=== PATIENT | female | born 1980 | race Hispanic/Latino ===

== ENCOUNTER 2022-07-21 18:48 | Emergency (ER) | payer OTHER ==
[~2022-07-21] VITALS: Ht 154.9 cm; Wt 83.9 kg
[2022-07-21 19:38] LABS: BASOPHILS # (AUTO) 0.1 (0.0-0.1); BASOPHILS % 0.6 % (0.0-1.0); EOSINOPHILS # (AUTO) 0.2 (0.0-0.4); EOSINOPHILS % 1.8 % (0.0-6.0); HEMATOCRIT 28.5 % (34.2-44.1); HEMOGLOBIN 7.1 g/dL (12.0-16.0); LYMPHOCYTES # (AUTO) 2.8 (1.0-3.2); LYMPHOCYTES % 27.3 % (18.0-39.1); MEAN CORPUSCULAR HEMOGLOBIN 15.4 pg (28-32); MEAN CORPUSCULAR HGB CONC 24.9 g/dL (31-35); MONOCYTES # (AUTO) 0.4 (0.2-0.8); MONOCYTES % 4.3 % (4.4-11.3); NEUTROPHILS # (AUTO) 6.7 (2.1-6.9); NEUTROPHILS % 65.6 % (38.7-80.0); PLATELET COUNT 622 x10e3/uL (140-360); RED CELL DISTRIBUTION WIDTH 19.9 % (11.7-14.4)
[2022-07-21 20:00] LABS: ALBUMIN 3.8 g/dL (3.5-5.0); ANION GAP 15.4 mmol/L (8-16); CALCIUM 8.8 mg/dL (8.4-10.2); CREATININE, SERUM 0.74 mg/dL (0.57-1.11); POTASSIUM 3.4 mmol/L (3.5-5.1)
[2022-07-21] MEDS ORDERED: SODIUM CHLORIDE 0.9% 250ML 250 ML IV ONE (20:15)
[2022-07-21] MEDS ORDERED: SODIUM CHLORIDE 0.9% 1000ML 1,000 ML ONE (21:30)
[2022-07-21] MEDS ORDERED: SODIUM CHLORIDE 0.9% 1000ML 1,000 ML IV STA (21:31)
[2022-07-22] MEDS ORDERED: SODIUM CHLORIDE 0.9% 250ML 250 ML ONE (00:18)
[2022-07-22 05:23] VITALS: BP 110/60
== END 2022-07-22 05:22 | disposition home or self-care (01) ==
LOC: ER 18:51
DX: R53.1 Weakness (principal); D50.9 Iron deficiency anemia, unspecified; N92.0 Excessive and frequent menstruation with regular cycle; F17.210 Nicotine dependence, cigarettes, uncomplicated
CPT/HCPCS: 36415; 80053; 81025; 85025; 86850; 86900; 86920; 99283; J7030; J7050 ×2; P9016

== ENCOUNTER → 2022-08-20 | Outpatient (CLI) | payer OTHER | LOC: US 13:01 | PROVIDERS: ATTEND Obstetrics & Gynecology | DX: N92.0 Excessive and frequent menstruation with regular cycle (principal) | CPT/HCPCS: 76830; 76856 ==